=== PATIENT | female | born 1985 | race Caucasian/White ===

== ENCOUNTER 2020-08-09 13:31 | Emergency (ER) | payer SELFPAY ==
[~2020-08-09] VITALS: Ht 147.3 cm; Wt 62.7 kg
[2020-08-09 14:29] LABS: HEMATOCRIT 42.2 % (37.0-47.0); HEMOGLOBIN 14.4 g/dl (12.0-16.0); IMMATURE GRANULOCYTES 0.3 % (0.0-5.0); MEAN CELL VOLUME 93.8 fL CALC (80.0-100.0); MEAN CORPUSCULAR HGB CONC 34.1 g/dL CAL (32.0-36.0); NEUT# 9.11 thou/uL (2.00-7.15); RED BLOOD COUNT 4.5 mill/uL (4.20-5.60); RED CELL DISTRI WIDTH 11.8 % (11.5-15.5)
[2020-08-09 14:53] LABS: ALBUMIN 4.3 g/dL (3.2-5.0); ALKALINE PHOSPHATASE 66 u/l (38-126); AMYLASE 61 u/l (30-110); ANION GAP 17 (6-22 (CALC)); BILIRUBIN, TOTAL 0.7 mg/dL (0.0-1.4); BUN 9 mg/dL (7-17); BUN/CREATININE RATIO 15 (12-20 (CALC)); CARBON DIOXIDE 24 mmol/l (22-30); CHLORIDE 103 mmol/l (95-108); CREATININE 0.6 mg/dL (0.5-1.0); GFR > 60 ML/MIN (>=60 (CALC)); GFR FOR AFR.AMER. > 60 ML/MIN (>=60 (CALC)); LIPASE 95 u/l (23-300); POTASSIUM 3.2 mmol/l (3.5-5.1); SGOT/AST 19 u/l (14-36); SODIUM 140 mmol/l (137-146)
[2020-08-09 15:34] LABS: URINE BILIRUBIN - DIPSTICK NEGATIVE (NEGATIVE); URINE BLOOD DIPSTICK LARGE (NEGATIVE); URINE COLOR YELLOW; URINE GLUCOSE - DIPSTICK NEGATIVE (NEGATIVE); URINE KETONE NEGATIVE (NEGATIVE); URINE LEUK ESTERASE MODERATE (NEGATIVE); URINE NITRITE - DIPSTICK POSITIVE (Negative); URINE PROTEIN - DIPSTICK 30 mg/dL (NEG-TRACE)
[2020-08-09] MEDS ORDERED: KEFLEX500 M1 PO (16:11)
[2020-08-09] MEDS ORDERED: NAPROXEN500 MG PO (16:11)
[2020-08-09 17:20] VITALS: BP 133/73
== END 2020-08-09 17:20 | disposition home or self-care (01) | DRG 690 ==
LOC: ED 13:31
PROVIDERS: Emergency Medicine
DX: N39.0 Urinary tract infection, site not specified (principal); B96.20 Unspecified Escherichia coli [E. coli] as the cause of diseases classified elsewhere
CPT/HCPCS: Q9967

== ENCOUNTER 2021-02-18 20:08 | Emergency (ER) | payer SELFPAY ==
[~2021-02-18] VITALS: Ht 147.3 cm; Wt 75.0 kg
[~2021-02-18 20:08] MED LIST: KEFLEX500 M1 PO; NAPROXEN500 MG PO
[2021-02-18 20:19] VITALS: BP 130/77
[2021-02-18] MEDS ORDERED: ZPAK PO (21:25)
[2021-02-18] MEDS ORDERED: ZOFRAN4 MG/TAB PO (21:25)
== END 2021-02-19 07:38 | disposition home or self-care (01) | DRG 866 ==
LOC: ED 20:08
DX: B34.9 Viral infection, unspecified (principal); Z20.822 Contact with and (suspected) exposure to COVID-19